=== PATIENT | male | born 1995 | race Caucasian/White ===

== ENCOUNTER 2023-01-25 15:03 | Emergency (ER) | payer MEDICAID, SELFPAY ==
[2023-01-25 15:10] VITALS: BP 110/69; PULSE 82; RESP 20; TEMP 37.4; O2SAT 98; BMI 38.0
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
--- NOTE | 2023-01-25 15:39 | CRLHL7_ITS ---
For Patients: As a result of the Century Cures Act, medical imaging exams and procedure reports are released immediately into your electronic medical record. You may view this report before your referring provider. If you have questions, please contact your health care provider. INDICATION: Fall, seizure on 01/23/2023 TECHNIQUE: Noncontrast axial CT of the head. Coronal and sagittal reformats. Bone and soft tissue algorithms. COMPARISON: No relevant comparison studies available at this institution. FINDINGS: The ventricles and cortical sulci appear age-appropriate. No midline shift or mass effect. No acute intracranial hemorrhage or extra-axial fluid collection. Don-white matter differentiation is grossly maintained. White matter attenuation is within normal limits. Intracranial vessels are unremarkable for technique. Empty-appearing sella configuration, presumed anatomic variant. Bony calvarium appears grossly intact. Mild rightward nasal septal deviation. Paranasal sinuses and mastoid air cells are clear. Orbits are unremarkable. IMPRESSION: Unremarkable CT head. No evidence of skull fracture or acute intracranial hemorrhage. Please note that all CT scans at this facility use dose modulation, iterative reconstruction, and/or weight-based dosing when appropriate to reduce radiation dose to as low as reasonably achievable. Dictated by Bita Mayen MD @ 01/25/2023 4:24:41 PM (Electronically Signed)
--- NOTE | 2023-01-25 16:09 | ED.NURSE ---
pt seizure was 2 days ago, decreased risk for complications, no orders for blood sugar, EKG or cardiac monitoring.
[2023-01-25 16:15] LABS: Basophils Absolute Auto 0.05 K/uL (0.00-0.30); Basophils Percent Auto 0.5 % (0.0-3.0); Eosinophils Absolute Auto 0.22 K/uL (0.00-0.50); Eosinophils Percent Auto 2.2 % (0.0-7.0); Hematocrit 40.6 % (37.0-53.0); Hemoglobin* 13.8 gm/dL (13.5-17.5); Immature Granulocytes Abs Auto 0.03 K/uL (0.00-0.30); Immature Granulocytes Pct Auto 0.3 %; Lymphocytes Absolute Auto 2.68 K/uL (0.90-2.90); Lymphocytes Percent Auto 27.4 % (20-44); Mean Corpuscular HGB Conc 34 gm/dL (32-36); Mean Corpuscular Hemoglobin 30 pg (26-34); Mean Corpuscular Volume 89 fL (80-100); Monocytes Percent Auto 8.5 % (0.0-11.0); Neutrophils Absolute Auto 5.98 K/uL (1.7-7.0); Neutrophils Percent Auto 61.1 % (42.0-72.0); Platelet Count* 235 K/uL (140-440); RDW Coefficient of Variation % 12.5 % (11.5-15.5); Red Blood Count 4.58 m/uL (4.30-5.90); White Blood Count* 9.79 K/uL (4.50-11.00)
[2023-01-25 16:27] LABS: Slide Review Reflex No
[2023-01-25 16:29] LABS: Albumin* 3.9 g/dL (3.3-5.0)
[2023-01-25 16:30] LABS: Chloride* 106 mmol/L (96-114); Potassium* 3.5 mmol/L (3.6-5.1); Sodium* 139 mmol/L (135-149)
[2023-01-25 16:32] LABS: Aspartate Amino Transferase* 30 U/L (12-35); Bilirubin Total* 0.7 mg/dL (0.1-1.5); Carbon Dioxide* 27 mmol/L (20-32); Creatinine* 0.7 mg/dL (0.5-1.5); Estimated Glomerular Filt Rate 128 ml/min; Total Protein* 7.2 g/dL (6.0-8.3)
[2023-01-25 16:33] LABS: Alanine Aminotransferase* 46 U/L (4-50); Alkaline Phosphatase* 65 U/L (40-150); Blood Urea Nitrogen* 17 mg/dL (5-24); Calcium* 8.2 mg/dL (8.4-10.6); Glucose* 103 mg/dL (60-115)
[2023-01-25 17:31] VITALS: BP 118/72; PULSE 80; RESP 20; TEMP 37.2; O2SAT 96
[2023-01-27 11:14] LABS: Keppra (Levetiracetam) 20 ug/mL (10-40)
== END 2023-01-25 17:30 | disposition home or self-care (01) ==
PROVIDERS: Emergency Provider Family Medicine
DX: G40.909 Epilepsy, unspecified, not intractable, without status epilepticus (principal)
CPT/HCPCS: 36415; 70450; 80053; 80177; 85025; 99284